=== PATIENT | female | born 1995 | race Two or more races ===

== ENCOUNTER 2017-03-15 10:41 | Emergency (ER) | payer MEDICAID ==
[~2017-03-15] VITALS: Ht 175.3 cm; Wt 67.6 kg
[2017-03-15 10:41] VITALS: BP 135/84
[~2017-03-15 10:41] MED LIST: DOXY150T PO
[2017-03-15] MEDS ORDERED: IBUPROFEN 200 MG TABLET ONE (11:35)
[2017-03-15] MEDS: IBUPROFEN 600 MG TABLET PO ONE (11:40)
== END 2017-03-15 11:49 | disposition home or self-care (01) ==
LOC: ER 10:44
DX: H66.91 Otitis media, unspecified, right ear (principal); J32.9 Chronic sinusitis, unspecified
CPT/HCPCS: A4606; Z7610

== ENCOUNTER 2017-11-08 09:39 | Emergency (ER) | payer MEDICAID ==
[~2017-11-08] VITALS: Ht 177.8 cm; Wt 68.0 kg
[2017-11-08 09:42] VITALS: BP 106/78
== END 2017-11-08 09:56 | disposition home or self-care (01) ==
LOC: ER 09:40
DX: J06.9 Acute upper respiratory infection, unspecified (principal); F10.10 Alcohol abuse, uncomplicated
CPT/HCPCS: A4606; Z7610

== ENCOUNTER 2018-07-14 21:15 | Emergency (ER) | payer MEDICAID ==
[~2018-07-14] VITALS: Ht 175.3 cm; Wt 65.3 kg
--- NOTE | 2018-07-14 21:55 | NUR ---
called for triage, no answer.
[2018-07-14 22:03] VITALS: BP 123/79
[2018-07-14] MEDS ORDERED: FLUORESCEIN SODIUM OPHTH 1 EA STRIP OP ONE (22:30)
[2018-07-14] MEDS ORDERED: TETRACAINE HCL/PF 0.5% UD 2 ML BOTTLE OP ONE (22:30)
[2018-07-14] MEDS ORDERED: FLUORESCEIN SODIUM OPHTH 1 EA STRIP ONE ×2 (22:31→22:33)
[2018-07-14] MEDS ORDERED: TETRACAINE HCL/PF 0.5% UD 2 ML BOTTLE ONE (22:31)
== END 2018-07-14 23:09 | disposition home or self-care (01) ==
LOC: ER 21:15
DX: H00.14 Chalazion left upper eyelid (principal); H00.11 Chalazion right upper eyelid; F10.10 Alcohol abuse, uncomplicated; F12.10 Cannabis abuse, uncomplicated; Y90.9 Presence of alcohol in blood, level not specified; Z41.1 Encounter for cosmetic surgery
CPT/HCPCS: 99283; A4606; Z7610

== ENCOUNTER 2019-09-09 18:05 | Emergency (ER) | payer MEDICAID ==
[~2019-09-09] VITALS: Ht 175.3 cm; Wt 64.9 kg
[~2019-09-09 18:05] MED LIST changes: -DOXY150T PO; +DOXY150T3 PO
--- NOTE | 2019-09-09 18:25 | NUR ---
PT CAME INTO THE ED C/O 8 WEEKS , CAN'T EAT, +NAUSEA, SLEPT 16hrs YESTERDAY AND STILL TIRED G1,P0,A0 . -VAGINAL BLEEDING/SPOTTING, -HEADACHE. PT AAOX4, VSS, BREATHING EVEN AND UNLABORED ON ROOM AIR. PT CONNECTED TO THE MONITOR.
[2019-09-09] MEDS ORDERED: METOCLOPRAMIDE HCL 10 MG TABLET ONE (18:57)
[2019-09-09 19:00] LABS: BASOPHILS % (AUTO) 0.6 % (0.0-2.0); EOSINOPHILS % (AUTO) 0.4 % (0.0-6.0); HEMATOCRIT 40 % (33-45); HEMOGLOBIN 13.6 g/dL (11.5-14.8); LYMPHOCYTES # (AUTO) 1.2 /CMM (0.8-4.8); LYMPHOCYTES % (AUTO) 18.3 % (20.0-44.0); MEAN CORPUSCULAR HGB CONC 34 g/dl (31.0-36.0); MEAN CORPUSCULAR VOLUME 90 fL (82-100); MONOCYTES # (AUTO) 0.5 /CMM (0.1-1.30); MONOCYTES % (AUTO) 8.3 % (2.0-12.0); NEUTROPHILS # (AUTO) 4.7 /CMM (1.8-8.9); NEUTROPHILS % (AUTO) 72.4 % (43.0-81.0); PLATELET COUNT (AUTO) 233 /CMM (150-450); WHITE BLOOD COUNT (AUTO) 6.4 K/uL (4.3-11.0)
[2019-09-09] MEDS ORDERED: METOCLOPRAMIDE HCL 10 MG TABLET PO ONE (19:00)
[2019-09-09 19:16] LABS: CALCIUM, SERUM 9.1 mg/dL (8.5-10.1); CREATININE 0.5 mg/dL (0.6-1.3); POTASSIUM 3.9 mmol/L (3.5-5.1)
[2019-09-09 19:19] LABS: THYROID STIMULATING HORMONE 0.997 uIU/mL (0.358-3.74)
--- NOTE | 2019-09-09 19:54 | NUR ---
URINE COLLECTED AND SENT TO THE LAB
[2019-09-09 20:01] LABS: APPEARANCE,URINE Clear (CLEAR); BILIRUBIN,URINE Negative (NEGATIVE); BLOOD, URINE Negative Ery/uL (NEGATIVE); COLOR,URINE Yellow (YELLOW); KETONES,URINE Negative (NEGATIVE); LEUKOCYTE ESTERASE ,URINE Negative (NEGATIVE); NITRITE, URINE Negative (NEGATIVE); PH,URINE 5.5 (5.0-8.0); PROTEIN,URINE Negative (NEGATIVE); UGLUCOSE Negative (NEGATIVE); UROBILINOGEN,URINE 0.2 EU/dL (0.2)
--- NOTE | 2019-09-09 20:21 | NUR ---
Patient discharged to home in stable condition. Rx and Written and verbal after care instructions given. Patient verbalizes understanding of instruction.
[2019-09-09 20:22] VITALS: BP 111/76
== END 2019-09-09 20:22 | disposition home or self-care (01) ==
LOC: ER 18:05
DX: O26.811 Pregnancy related exhaustion and fatigue, first trimester (principal); R11.0 Nausea; Z98.890 Other specified postprocedural states; Z3A.08 8 weeks gestation of pregnancy
CPT/HCPCS: 36415; 80048; 81001; 84443; 84702; 84703; 85025; 87086; 99283; J8597; 81000-TC

== ENCOUNTER 2021-09-09 01:22 | Emergency (ER) | payer MEDICAID ==
[~2021-09-09] VITALS: Ht 172.7 cm; Wt 72.6 kg
[2021-09-09 01:44] VITALS: BP 126/78
[2021-09-09] MEDS ORDERED: AMOX-430 PO (01:55)
[2021-09-09] MEDS ORDERED: AMOX/CLAVULANATE 875 MG TABLET ONE (02:11)
[2021-09-09] MEDS ORDERED: AMOX/CLAVULANATE 875 MG TABLET PO ONE (02:30)
== END 2021-09-09 02:17 | disposition home or self-care (01) ==
LOC: ER 01:24
DX: S01.83XA Puncture wound without foreign body of other part of head, initial encounter (principal); Z79.899 Other long term (current) drug therapy; W50.3XXA Accidental bite by another person, initial encounter; Y93.89 Activity, other specified; Y92.89 Other specified places as the place of occurrence of the external cause; Y99.8 Other external cause status

== ENCOUNTER 2022-01-20 11:48 | Emergency (ER) | payer MEDICAID, OTHER ==
[~2022-01-20] VITALS: Ht 172.7 cm; Wt 68.0 kg
[~2022-01-20 11:48] MED LIST changes: +AMOX-430 PO
--- NOTE | 2022-01-20 12:01 | NUR ---
TO ER BED 9, BIB SELF C/O SOB X 2 WEEKS. SEEN IN URGENT CARE LAST WEEK WAS DX OF ANXIETY 100% ON ROOM AIR, AAOX3, BREATHING EVEN AND NON LABORED, CONNECTED TO MONITOR, AWAITING MD MYLES
--- NOTE | 2022-01-20 12:50 | NUR ---
PT SEEN AND EXAMINED BY .
--- NOTE | 2022-01-20 13:32 | NUR ---
URINE COLLECTED AND SENT TO LAB
--- NOTE | 2022-01-20 13:34 | NUR ---
IV ESTBLISHED R AC 20G. LABS DRAWN AND COLLECTED. CONVERTED TO SALINE LOCK.
--- NOTE | 2022-01-20 13:34 | NUR ---
Dylan caceres in EDM - 01/20/22 at 1624 by NAGIO IV ESTALEXIA R AC 10G. LABS DRAWN AND COLLECTED. CONVERTED TO SALINE LOCK.
[2022-01-20 13:41] LABS: BASOPHILS % (AUTO) 0.5 % (0.0-2.0); EOSINOPHILS % (AUTO) 0.3 % (0.0-6.0); HEMATOCRIT 47 % (33-45); HEMOGLOBIN 15.9 g/dL (11.5-14.8); LYMPHOCYTES # (AUTO) 0.6 K/uL (0.8-4.8); LYMPHOCYTES % (AUTO) 12.8 % (20.0-44.0); MEAN CORPUSCULAR HGB CONC 34 g/dl (31.0-36.0); MEAN CORPUSCULAR VOLUME 90 fL (82-100); MONOCYTES # (AUTO) 0.3 K/uL (0.1-1.30); MONOCYTES % (AUTO) 6.7 % (2.0-12.0); NEUTROPHILS # (AUTO) 4.1 K/uL (1.8-8.9); NEUTROPHILS % (AUTO) 79.7 % (43.0-81.0); PLATELET COUNT (AUTO) 242 K/uL (150-450); RED BLOOD CELL COUNT(AUTO) 5.23 MIL/uL (4.0-5.2); WHITE BLOOD COUNT (AUTO) 5.1 K/uL (4.3-11.0)
[2022-01-20 13:50] LABS: CREATININE 0.7 mg/dL (0.6-1.3); POTASSIUM 3.2 mmol/L (3.5-5.1)
[2022-01-20] MEDS ORDERED: POTASSIUM CHLORIDE 20 MEQ TAB.PRT.SR PO ONE ×2 (14:20→14:30)
[2022-01-20] MEDS ORDERED: IV NS 0.9% 1,000 ML BAG IV ONE (14:30)
--- NOTE | 2022-01-20 15:50 | NUR ---
RT G COMPLETED, RESULTS GIVEN TO DR VITALE.
[2022-01-20 15:52] LABS: ABG BASE EXCESS -3.5 mmol/L; ABG PCO2 21.5 mmHg (35.0-45.0); ABG PH 7.521 (7.350-7.450); ABG PO2 99.6 mmHg (75.0-100.0); COHb 0.3 % (0.5-1.5); MetHb 0.3 % (0.0-1.5); O2Hb 97.1 % (94.0-97.0); SITE, ABG Left Brachial; VENT MODE, BG ROOM AIR
--- NOTE | 2022-01-20 16:23 | NUR ---
IV removed. Catheter intact and site benign. Pressure and 4x4 applied to site. No bleeding noted.Patient discharged to home in stable condition. Written and verbal after care instructions given. Patient verbalizes understanding of instruction.
[2022-01-20 16:24] VITALS: BP 123/81
== END 2022-01-20 16:24 | disposition home or self-care (01) ==
LOC: ER 11:54
DX: E87.6 Hypokalemia (principal); D75.1 Secondary polycythemia; R06.02 Shortness of breath; Z79.899 Other long term (current) drug therapy
CPT/HCPCS: 36415; 36600 ×2; 71045; 80048; 82803; 84703; 85025; 85378; 93005; 96360; 99285; J7030

== ENCOUNTER 2022-02-25 19:35 | Emergency (ER) | payer MEDICAID ==
[~2022-02-25] VITALS: Ht 172.7 cm; Wt 70.3 kg
--- NOTE | 2022-02-25 20:30 | NUR ---
TO ER BED 6. BIBS C/O HEADACHE, N/V/D, AND R HAND NUMBENESS X TODAY 173. TOOK TYLENOL WITH LITTLE RELIEF. EMS WERE CALLED BUT WERE MEDICALLY CLEARED. PPT DENIES ANY CHEST PAIN. CONNECTED TO MONITOR. AWAITING MD MYLES
[2022-02-25] MEDS ORDERED: MECLIZINE HCL 12.5 MG TABLET PO ONE (21:00)
[2022-02-25] MEDS ORDERED: MECLIZINE HCL 12.5 MG TABLET ONE (21:00)
--- NOTE | 2022-02-25 21:45 | NUR ---
PT TAKEN TO CT SCAN. PT SIGNED WAIVER INDICATING SHE IS NOT .
[2022-02-25] MEDS ORDERED: MECL-182 PO (22:56)
[2022-02-26 00:06] VITALS: BP 109/70
--- NOTE | 2022-02-26 00:06 | NUR ---
Patient discharged to home in stable condition. Written and verbal after care instructions given. Patient verbalizes understanding of instruction.
== END 2022-02-26 00:08 | disposition home or self-care (01) ==
LOC: ER 19:47
DX: R51.9 Headache, unspecified (principal); R42 Dizziness and giddiness; Z79.899 Other long term (current) drug therapy
CPT/HCPCS: 70450; 99284; J8597

== ENCOUNTER 2024-09-02 18:09 | Emergency (ER) | payer MEDICAID, OTHER ==
[~2024-09-02] VITALS: Ht 172.7 cm; Wt 69.4 kg
[~2024-09-02 18:09] MED LIST changes: +MECL-182 PO
[2024-09-02 18:27] VITALS: TEMP 100
[2024-09-02 18:47] LABS: BASOPHILS % (AUTO) 0.3 % (0.0-2.0); HEMATOCRIT 43 % (33-45); HEMOGLOBIN 14.9 g/dL (11.5-14.8); LYMPHOCYTES # (AUTO) 0.5 K/uL (0.8-4.8); LYMPHOCYTES % (AUTO) 6.3 % (20.0-44.0); MEAN CORPUSCULAR HEMOGLOBIN 31 PG (26.0-33.0); MEAN CORPUSCULAR HGB CONC 35 g/dl (31.0-36.0); MEAN CORPUSCULAR VOLUME 90 fL (82-100); MONOCYTES # (AUTO) 0.2 K/uL (0.1-1.30); MONOCYTES % (AUTO) 3.2 % (2.0-12.0); NEUTROPHILS # (AUTO) 6.9 K/uL (1.8-8.9); NEUTROPHILS % (AUTO) 90.2 % (43.0-81.0); PLATELET COUNT (AUTO) 238 K/uL (150-450); RED BLOOD CELL COUNT(AUTO) 4.75 MIL/uL (4.0-5.2); RED CELL DISTRIBUTION WIDTH 12.7 % (11.5-15.0); WHITE BLOOD COUNT (AUTO) 7.6 K/uL (4.3-11.0)
[2024-09-02] MEDS ORDERED: ONDANSETRON HCL/PF 4 MG/2 ML VIAL ONE (18:48)
[2024-09-02 18:55] LABS: CALCIUM, SERUM 8.9 mg/dL (8.5-10.1); CREATININE 0.8 mg/dL (0.6-1.3)
[2024-09-02] MEDS: IV NS 0.9% 1,000 ML BAG IV ONE (18:58)
[2024-09-02] MEDS: ONDANSETRON HCL/PF - ER 4 MG/2 ML VIAL IV ONE (18:59)
[2024-09-02] MEDS ORDERED: ONDANSETRON 4 MG TAB.RAPDIS SL ONE (19:00)
[2024-09-02] MEDS ORDERED: KETOROLAC TROMETHAMINE 15 MG/ML VIAL ONE (19:34)
[2024-09-02] MEDS ORDERED: diphenhydrAMINE HCL 50 MG/ML VIAL ONE (19:34)
[2024-09-02] MEDS ORDERED: METOCLOPRAMIDE HCL 10 MG/2 ML VIAL ONE (19:34)
[2024-09-02] MEDS: KETOROLAC TROMETHAMINE 15 MG/ML VIAL IV ONE (19:42)
[2024-09-02] MEDS: METOCLOPRAMIDE HCL 10 MG/2 ML VIAL IV ONE (19:42)
[2024-09-02] MEDS: diphenhydrAMINE HCL 50 MG/ML VIAL IV ONE (19:42)
[2024-09-02] MEDS: POTASSIUM CHLORIDE 20 MEQ TAB.PRT.SR PO ONE (19:46)
[2024-09-02] MEDS ORDERED: POTASSIUM CHLORIDE 20 MEQ TAB.PRT.SR PO ONE (19:46)
[2024-09-02 19:53] VITALS: BP 106/69; O2SAT 99
[2024-09-02] MEDS ORDERED: ONDA4TAB5 PO (20:06)
== END 2024-09-02 20:09 | disposition home or self-care (01) ==
LOC: ER 18:13
DX: R51.9 Headache, unspecified (principal); R11.2 Nausea with vomiting, unspecified; R19.7 Diarrhea, unspecified; H53.8 Other visual disturbances; R42 Dizziness and giddiness; F12.90 Cannabis use, unspecified, uncomplicated
CPT/HCPCS: 99284; 96374; 96375; 96361; 85025; 80048; 36415; J1200; J2765; J2405; J7030; J1885

== ENCOUNTER 2024-09-04 00:16 | Emergency (ER) | payer OTHER ==
[~2024-09-04 00:16] MED LIST changes: +ONDA4TAB5 PO
== END 2024-09-04 02:26 | disposition left against medical advice (07) ==
LOC: ER 00:23
DX: G43.909 Migraine, unspecified, not intractable, without status migrainosus (principal); R04.0 Epistaxis; Z53.21 Procedure and treatment not carried out due to patient leaving prior to being seen by health care provider